=== PATIENT | male | born 1975 | race Caucasian/White ===

== ENCOUNTER → 2021-03-24 15:58 | Outpatient (BNVA) | payer SELFPAY | PROVIDERS: Visit Provider Family Medicine | DX: E78.5 Hyperlipidemia, unspecified (principal); G40.909 Epilepsy, unspecified, not intractable, without status epilepticus; E11.9 Type 2 diabetes mellitus without complications; I10 Essential (primary) hypertension; Z76.89 Persons encountering health services in other specified circumstances | CPT/HCPCS: 80053; 80061; 80156; 80177; 83036; 85025 ==

== ENCOUNTER 2021-07-25 04:33 | Emergency (ER) | payer SELFPAY ==
[2021-07-25 04:34] VITALS: BP 165/95; PULSE 78; RESP 16; TEMP 36.7; O2SAT 99; BMI 25.1
--- NOTE | 2021-07-25 04:56 | XRR_ITS ---
PROCEDURE INFORMATION: Exam: XR Chest Exam date and time: 07/25/2021 4:56 AM Age: 46 years old Clinical indication: Patient HX: Generalized weakness. Hypoglycemic. TECHNIQUE: Imaging protocol: XR of the chest. Views: 1 view. COMPARISON: No relevant prior studies available. FINDINGS: Lungs: Unremarkable. No consolidation. Pleural spaces: Unremarkable. No pleural effusion. No pneumothorax. Heart/Mediastinum: Unremarkable. No cardiomegaly. Bones/joints: Unremarkable. XR/XR chest 1V portable [id number] IMPRESSION: No acute findings.
--- NOTE | 2021-07-25 04:57 | ECG_ITS ---
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 Measurements Intervals [place] Rate: 79 P: 12 OR: 162 QRS: 11 QRSD: 98 T: 26 QT: 366 QTc: 421 Interpretive Statements SINUS RHYTHM NONSPECIFIC ST ELEVATION [0.05+ mV ST ELEVATION] No previous ECG available for comparison Electronically Signed On 07-25-2021 14:15:33 GENERAL I FARMWORKER by Lennie Valentine M.D. [id number]
[2021-07-25 05:04] LABS: Add Urine Microscopic? NO; Charge for UA Resulting for Rev
[2021-07-25 05:08] LABS: Bilirubin Urine Neg (Negative); Blood Urine Neg (Negative); Glucose Urine UA 4+ (Normal); Ketones Urine Negative (Negative); Leukocyte Esterase Urine Negative (Negative); Nitrate Urine Negative (Negative); Protein Urine Neg (Negative); Urine Appearance Clear (CLEAR); Urine Color Straw (Yellow); Urobilinogen Urine Norm (Negative); pH Urine 5 (5-7)
[2021-07-25 05:14] LABS: Basophils # 0.1 10^3/uL (0.0-0.1); Basophils % 0.8 %; Eosinophils # 0.3 10^3/uL (0.0-0.8); Eosinophils % 5.3 %; Hematocrit 41.8 % (42.0-52.0); Hemoglobin 14.4 g/dL (11.7-16.6); Lymphocytes # 2.6 10^3/uL (0.8-4.8); Lymphocytes % 42.5 %; Mean Corpuscular HGB Conc 34.4 g/dL (30.0-36.0); Mean Corpuscular Hemoglobin 31.2 pg (28.0-34.0); Mean Corpuscular Volume 90.5 fl (80-94); Mean Platelet Volume 9.8 fL (7.4-10.4); Monocytes # 0.5 10^3/uL (0.2-0.9); Monocytes % 7.7 %; Neutrophils # 2.64 10^3/uL (1.8-7.7); Neutrophils % 43.5 %; Nucleated Red Blood Cells % 0 %; Platelet Count 280 10^3/cmm (130-400); Red Blood Count 4.62 10^6/uL (4.1-5.3); Red Cell Distribution Width 11.1 % (12.1-15.1); White Blood Count 6.1 10^3/uL (4.0-10.0)
[2021-07-25 05:17] LABS: Ketone (Acetest) Serum Negative (Negative)
[2021-07-25] MEDS: sodium chloride 0.9% 1,000 ML 999 ML IV ×2 (05:20→07:09)
[2021-07-25 05:35] LABS: Procalcitonin 0.06 ng/mL (0-0.5)
[2021-07-25 05:36] LABS: Alanine Aminotransferase 21 U/L (0-41); Alkaline Phosphatase 118 IU/L (40-130); Anion Gap 19.6 (5-19); Aspartate Amino Transferase 12 U/L (0-40); Blood Urea Nitrogen 5 mg/dL (6-20); C Reactive Protein 4.1 mg/L (0.0-4.9); Calcium 8.2 mg/dL (8.5-10.5); Carbon Dioxide 20 mmol/L (22-29); Chloride 97 mmol/L (98-107); Creatine Phosphokinase 108 U/L (39-308); Globulin 2.8 g/dL (1.3-4.6); Glomerular Filtration Rate 145.7 mL/min (90-130); Glucose 389 mg/dL (65-115); Magnesium 1.5 mg/dL (1.7-2.3); Osmolality Calculated 289 mOsm/kg (285-295); Potassium 3.6 mmol/L (3.5-5.1); Sodium 133 mmol/L (136-145); Total Bilirubin 0.2 mg/dL (0.15-1.2); Total Protein 6.8 g/dL (6.6-8.7)
--- NOTE | 2021-07-25 05:55 | W.ED.GENADLT ---
HPI - General Adult General: Chief complaint: General Medical Stated complaint: HYPERGLYCEMIC Time Seen by Provider: 07/25/21 04:55 History of Present Illness: HPI narrative: 46-year-old male diabetic with a history of seizure disorder. He notes that while he was at work, both of his legs became weak. They are still weak. He has not felt well today. He has not really been coughing. He is not overly short of breath. Says that he is having trouble getting warm currently. He denies known fever. She does not usually check his blood sugar. He was found to have a liter of Mountain Dew with him. His blood sugar was in the high 300s per EMS. Onset (ago): hour(s) Radiation: non-radiation Pain Consistency: other Relieving factors: other Associated symptoms: Reports fevers/chills and nausea; Deny chest pain, confusion, cough, headache(s), palpitations, short of breath, vomiting or weakness Treatments prior to arrival: NSAID Review of Systems Card: Denies: chest pain or palpitations GI: Reports: nausea; Denies: vomiting Neuro: Denies: headache(s) or confusion PFSH ED PFSH: Medical History Type 2 diabetes mellitus Family History Mother Cancer breast cancer Father Cancer lung cancer Social History Smoking and tobacco status: current every day smoker Alcohol intake: current Alcohol intake frequency: holidays/special occasions only Physical Exam Const: GENERAL APPEARANCE: cooperative and ill appearing (Mildly) HENMT: COMMON NORMALS: normocephalic, atraumatic and Normal external nose present HEAD & SCALP: normocephalic and atraumatic FACE & SINUS: normal facial exam NOSE: Normal external nose present and Normal nares present Chest: COMMONS NORMALS: normal inspection of the chest Resp: COMMON NORMALS: normal respiratory effort, No use of accessory muscles and clear to auscultation bilaterally AUSCULTATION: clear to auscultation bilaterally Cardio: COMMON NORMALS: regular rate and regular rhythm RATE: regular rate RHYTHM: regular rhythm GI: COMMON NORMALS: Normal to inspection, nondistended, normoactive bowel sounds present, Soft to palpation and non-tender PALPATION: Yes Soft to palpation Extremity: GENERAL: No edema Neuro: DAVIN COMA SCALE: document GCS findings Davin coma scale eye opening: Spontaneous Davin coma scale verbal response: Orientated [place] coma scale motor response: Obey commands Davin coma scale total score: 15 CRANIAL NERVES: Yes CN normal except as noted MOTOR EXAM: Motor fasciculations not present and Motor abnormalities not present Course Vital Signs: Vital signs: Vital Signs Temperature 98.0 F 07/25/21 04:34 Pulse Rate 71 07/25/21 08:00 Respiratory Rate 16 07/25/21 08:00 Blood Pressure 151/86 07/25/21 08:00 Pulse Oximetry 99 07/25/21 08:00 MDM - General Adult MDM Narrative: Medical decision making narrative: Patient is afebrile here. He is nontachycardic. He is hyperglycemic, but he does not have a significant anion gap. His serum ketones are negative. His renal function appears normal. White blood cell count is 6. Hemoglobin is 14. Bicarbonate level is 20. Urinalysis is negative. Coronavirus PCR is pending. He will get another liter of fluid and be allowed home. Lab Data: Labs: Lab Results 07/25/21 07/25/21 07/25/21 04:52 04:55 04:55 WBC 6.1 10^3/uL 10^3/ uL (4.0-10.0) RBC 4.62 10^6/uL 10^6 /uL (4.1-5.3) Hgb 14.4 g/dL g/dL (11.7-16.6) Hct 41.8 % L % (42.0-52.0) MCV 90.5 fl fl (80-94) MCH 31.2 pg pg (28.0-34.0) MCHC 34.4 g/dL g/dL (30.0-36.0) RDW 11.1 % L % (12.1-15.1) Plt Count 280 10^3/cmm 10^3 /cmm (130-400) MPV 9.8 fL fL (7.4-10.4) Neut % (Auto) 43.5 % % Lymph % (Auto) 42.5 % % Alfalfa % (Auto) 7.7 % % Eos % (Auto) 5.3 % % Baso % (Auto) 0.8 % % Neut # (Auto) 2.64 10^3/uL 10^3 /uL (1.8-7.7) Lymph # (Auto) 2.6 10^3/uL 10^3/ uL (0.8-4.8) Alfalfa # (Auto) 0.5 10^3/uL 10^3/ uL (0.2-0.9) Eos # (Auto) 0.3 10^3/uL 10^3/ uL (0.0-0.8) Baso # (Auto) 0.1 10^3/uL 10^3/ uL (0.0-0.1) Nucleated RBC % (a uto) 0 % % Nucleated RBCs # 0.0 /100WBC /100W BC Sodium 133 mmol/L L mmol /L (136-145) Potassium 3.6 mmol/L mmol/L (3.5-5.1) Chloride 97 mmol/L L mmol/ L (98-107) Carbon Dioxide 20 mmol/L L mmol/ L (22-29) Anion Gap 19.6 H (5-19) BUN 5 mg/dL L mg/dL (6-20) Creatinine 0.6 mg/dL L mg/dL (0.7-1.2) GFR Calculation 145.7 mL/min H mL /min (90-130) Glucose 389 mg/dL H mg/dL (65-115) POC Glucose 384 mg/dL H mg/dL (70-110) Calculated Osmolal ity 289 mOsm/kg mOsm/ kg (285-295) Calcium 8.2 mg/dL L mg/dL (8.5-10.5) Magnesium 1.5 mg/dL L mg/dL (1.7-2.3) Total Bilirubin 0.2 mg/dL mg/dL (0.15-1.2) AST 12 U/L U/L (0-40) ALT 21 U/L U/L (0-41) Alkaline Phosphata se 118 IU/L IU/L (40-130) Creatine Kinase 108 U/L U/L (39-308) C-Reactive Protein 4.1 mg/L mg/L (0.0-4.9) Total Protein 6.8 g/dL g/dL (6.6-8.7) Albumin 4.0 g/dL g/dL (3.5-5.2) Globulin 2.8 g/dL g/dL (1.3-4.6) Procalcitonin 0.06 ng/mL ng/mL (0-0.5) Urine Color Urine Appearance Urine pH Ur Specific Gravit y Urine Protein Urine Glucose (UA) Urine Ketones Urine Blood Urine Nitrate Urine Bilirubin Urine Urobilinogen Ur Leukocyte Nathalie ase Serum Ketones Coronavirus 229E ( PCR) SARS-CoV-2 (PCR) 07/25/21 07/25/21 07/25/21 04:55 04:55 04:59 WBC RBC Hgb Hct MCV MCH MCHC RDW Plt Count MPV Neut % (Auto) Lymph % (Auto) Alfalfa % (Auto) Eos % (Auto) Baso % (Auto) Neut # (Auto) Lymph # (Auto) Alfalfa # (Auto) Eos # (Auto) Baso # (Auto) Nucleated RBC % (a uto) Nucleated RBCs # Sodium Potassium Chloride Carbon Dioxide Anion Gap BUN Creatinine GFR Calculation Glucose POC Glucose Calculated Osmolal ity Calcium Magnesium Total Bilirubin AST ALT Alkaline Phosphata se Creatine Kinase C-Reactive Protein Total Protein Albumin Globulin Procalcitonin Urine Color Straw (Yellow) Urine Appearance Clear (CLEAR) Urine pH 5 (5-7) Ur Specific Gravit y 1.010 (1.005-1.030) Urine Protein Neg (Negative) Urine Glucose (UA) 4+ H (Normal) Urine Ketones Negative (Negative) Urine Blood Neg (Negative) Urine Nitrate Negative (Negative) Urine Bilirubin Neg (Negative) Urine Urobilinogen Norm mg/dL mg/dL (Negative) Ur Leukocyte Nathalie ase Negative (Negative) Serum Ketones Negative (Negative) Coronavirus 229E ( PCR) Not detected (NOT DETECT) SARS-CoV-2 (PCR) Not detected (NOT DETECT) 07/25/21 08:13 WBC RBC Hgb Hct MCV MCH MCHC RDW Plt Count MPV Neut % (Auto) Lymph % (Auto) Alfalfa % (Auto) Eos % (Auto) Baso % (Auto) Neut # (Auto) Lymph # (Auto) Alfalfa # (Auto) Eos # (Auto) Baso # (Auto) Nucleated RBC % (a uto) Nucleated RBCs # Sodium Potassium Chloride Carbon Dioxide Anion Gap BUN Creatinine GFR Calculation Glucose POC Glucose 262 mg/dL H mg/dL (70-110) Calculated Osmolal ity Calcium Magnesium Total Bilirubin AST ALT Alkaline Phosphata se Creatine Kinase C-Reactive Protein Total Protein Albumin Globulin Procalcitonin Urine Color Urine Appearance Urine pH Ur Specific Gravit y Urine Protein Urine Glucose (UA) Urine Ketones Urine Blood Urine Nitrate Urine Bilirubin Urine Urobilinogen Ur Leukocyte Nathalie ase Serum Ketones Coronavirus 229E ( PCR) SARS-CoV-2 (PCR) Discharge Plan Discharge Patient Disposition: Home Clinical Impression: Acute hyperglycemia, Weakness generalized Condition: Stable Prescriptions: No Action levetiracetam [Keppra] 1,000 mg tablet 1,000 mg PO BID 90 Days Qty: 180 RF: 1 glimepiride 4 mg tablet 4 mg PO DAILY 90 Days Qty: 90 RF: 1 simvastatin 20 mg tablet 20 mg PO .at bedtime 90 Days Qty: 90 RF: 1 carbamazepine 200 mg capsule, ER multiphase 12 hr 200 mg PO BID 90 Days Qty: 180 RF: 1 metformin 500 mg tablet extended release 24 hr 500 mg PO BID 90 Days Qty: 180 RF: 1 lisinopril 20 mg tablet 20 mg PO DAILY 90 Days Qty: 90 RF: 1 Discharge Orders: Discharge ED (Routine); Ordered 07/25/21 Ordered By: Kj Brewer Discharge Diet: Advance as tolerated and Diabetic Discharge Activity: Increase activity as tolerated Activity Restrictions/Additional Instructions: Your coronavirus test is pending at this point. They will take a few hours to come back. You will get a call if it is positive, with further instructions. Drink plenty of nonsugar liquids for the next 24 hours. Return for inability to control fever, shortness of breath, vomiting liquids or medications, seizures, any other concerning symptoms. Coding Level of Care Code ED Can Filling And Closing Machine Tender for Maude Méndez
[2021-07-25 06:44] LABS: Glucose Point of Care 384 mg/dL (70-110)
--- NOTE | 2021-07-25 07:35 | PC.NURSE ---
WHILE AT DOORWAY PT IS RESTING QUIETLY WITH EYES CLOSED SUPINE IN BED. PT HAS GOOD CHEST RISE AND FALL.
[2021-07-25 07:36] VITALS: PULSE 70; RESP 15; O2SAT 97
[2021-07-25 08:00] VITALS: BP 151/86; PULSE 71; RESP 16; O2SAT 99
[2021-07-25 08:17] LABS: Glucose Point of Care 262 mg/dL (70-110)
[2021-07-25 08:51] LABS: Adenovirus Not Detected (NOT DETECT); Chlamydia Pneumoniae Not Detected (NOT DETECT); Human Metapneumovirus Not Detected (NOT DETECT); Human Rhinovirus/Enterovirus Not Detected (NOT DETECT); Influenza A Not Detected (NOT DETECT); Influenza A H1 Not Detected (NOT DETECT); Influenza A H1-2009 Not Detected (NOT DETECT); Influenza A H3 Not Detected (NOT DETECT); Influenza B Not Detected (NOT DETECT); Mycoplasma Pneumoniae Not Detected (NOT DETECT); Parainfluenza Virus Type 1 Not Detected (NOT DETECT); Parainfluenza Virus Type 2 Not Detected (NOT DETECT); Parainfluenza Virus Type 3 Not Detected (NOT DETECT); Parainfluenza Virus Type 4 Not Detected (NOT DETECT); Respiratory Syncytial Virus A Not Detected (NOT DETECT); Respiratory Syncytial Virus B Not Detected (NOT DETECT); SARS-COV-2 Not Detected (NOT DETECT)
[2021-07-25 08:56] LABS: Coronavirus 229E,HKU1,NL63,OC4 Not Detected (NOT DETECT)
== END 2021-07-25 08:28 | disposition home or self-care (01) ==
PROVIDERS: Emergency Provider Emergency Medicine
DX: R53.1 Weakness (principal); E11.65 Type 2 diabetes mellitus with hyperglycemia; Z79.84 Long term (current) use of oral hypoglycemic drugs; F17.210 Nicotine dependence, cigarettes, uncomplicated; Z20.822 Contact with and (suspected) exposure to COVID-19
CPT/HCPCS: 36416; 71045; 80053; 81003; 82009; 82550; 82962; 83735; 84145; 85025; 86140; 87635; 93005; 96360; 96361; 99284; J7030

== ENCOUNTER → 2021-10-22 09:40 | Outpatient (BNVA) | payer SELFPAY | PROVIDERS: Visit Provider Family Medicine | DX: G40.909 Epilepsy, unspecified, not intractable, without status epilepticus (principal); Z51.81 Encounter for therapeutic drug level monitoring; E11.9 Type 2 diabetes mellitus without complications; I10 Essential (primary) hypertension | CPT/HCPCS: 80053; 80157; 80177; 83036; 85025 ==

== ENCOUNTER → 2022-04-06 13:27 | Outpatient (BNVA) | payer SELFPAY | PROVIDERS: Visit Provider Family Medicine | DX: G40.909 Epilepsy, unspecified, not intractable, without status epilepticus (principal); E11.9 Type 2 diabetes mellitus without complications; E78.5 Hyperlipidemia, unspecified; I10 Essential (primary) hypertension | CPT/HCPCS: 80053; 80061; 83036 ==

== ENCOUNTER → 2022-10-05 08:35 | Outpatient (BNVA) | payer BC, SELFPAY | PROVIDERS: Visit Provider Family Medicine | DX: E11.9 Type 2 diabetes mellitus without complications (principal); E78.5 Hyperlipidemia, unspecified; G40.909 Epilepsy, unspecified, not intractable, without status epilepticus; I10 Essential (primary) hypertension; Z59.9 Problem related to housing and economic circumstances, unspecified | CPT/HCPCS: 80048; 83036 ==

== ENCOUNTER → 2023-01-11 08:35 | Outpatient (BNVA) | payer BC, SELFPAY | PROVIDERS: PCP Family Medicine; Visit Provider Family Medicine | DX: E11.9 Type 2 diabetes mellitus without complications (principal); E78.5 Hyperlipidemia, unspecified; G40.909 Epilepsy, unspecified, not intractable, without status epilepticus; I10 Essential (primary) hypertension | CPT/HCPCS: 80053; 83036 ==

== ENCOUNTER → 2023-08-15 08:31 | Outpatient (BNVA) | payer BC, SELFPAY | PROVIDERS: PCP Family Medicine; Visit Provider Family Medicine | DX: G40.909 Epilepsy, unspecified, not intractable, without status epilepticus (principal); E11.9 Type 2 diabetes mellitus without complications; E78.5 Hyperlipidemia, unspecified; I10 Essential (primary) hypertension | CPT/HCPCS: 80053; 80061; 83036; 83721 ==

== ENCOUNTER → 2024-02-27 10:24 | Outpatient (BNVA) | payer BC, SELFPAY | PROVIDERS: PCP Family Medicine; Referring Provider Family Medicine; Visit Provider Family Medicine | DX: I10 Essential (primary) hypertension (principal); G40.909 Epilepsy, unspecified, not intractable, without status epilepticus; E11.9 Type 2 diabetes mellitus without complications; E78.5 Hyperlipidemia, unspecified | CPT/HCPCS: 80053; 80177; 83036 ==

== ENCOUNTER → 2024-05-29 09:16 | Outpatient (BNVA) | payer BC, SELFPAY | PROVIDERS: PCP Family Medicine; Visit Provider Family Medicine | DX: E11.9 Type 2 diabetes mellitus without complications | CPT/HCPCS: 80048; 83036 ==